=== PATIENT | male | born 1960 | race Caucasian/White ===

== ENCOUNTER 2019-05-05 08:27 | Emergency (ER) | payer BC ==
[2019-05-05 08:38] VITALS: BP 125/81
--- NOTE | 2019-05-05 10:08 | UC ---
Skin Complaint HPI - HPI Summary HPI Summary: 59-year-old male who was exposed to poison [place] and poison javier 10 days ago and developed a contact dermatitis which has not improved and is now spreading he has it on both arms and his left leg. - History of Current Complaint Chief Complaint: UCRash Time Seen by Provider: 05/05/19 10:05 Stated Complaint: POSION JAVIER/OAK Hx Obtained From: Patient Onset/Duration: Gradual Onset Skin Exposure Onset/Duration: Days Ago Timing: Constant Onset Severity: Mild Current Severity: Moderate Pain Intensity: 0 Location: Diffuse, Other - Left arm and left leg and no spreading to his right arm. Character: Pruritus, Redness Aggravating Factor(s): Touch Alleviating Factor(s): Nothing Associated Signs & Symptoms: Positive: Rash, Drainage - Clear drainage from some vesicles. Related History: Possible Reaction to: Environmental Exposure - Allergy/Home Medications Allergies/Adverse Reactions: Allergies Allergy/AdvReac Type Severity Reaction Status Date / Time allopurinol Allergy rash in Verified 05/05/19 08:39 mouth PMH/Surg Hx/FS Hx/Imm Hx Previously Healthy: Yes - Surgical History Surgical History: None Surgery Procedure, Year, and Place: DENIES - Family History Known Family History: Positive: Non-Contributory - Social History Alcohol Use: Daily Alcohol Amount: 5-6 beers/day Substance Use Type: Marijuana Substance Use Comment - Amount & Last Used: OCCASIONAL Smoking Status (MU): Never Smoked Tobacco Review of Systems All Other Systems Reviewed And Are Negative: Yes Skin: Positive: Rash - Rash started on his left arm and is now moving to his right arm and his left leg. Very itchy with some clear drainage. Is Patient Immunocompromised?: No Physical Exam Triage Information Reviewed: Yes Appearance: Well-Appearing, No Pain Distress, Well-Nourished Vital Signs: Initial Vital Signs Temp 98 F 05/05/19 08:37 Pulse 68 05/05/19 08:37 Resp 16 05/05/19 08:37 BP 125/81 05/05/19 08:37 Pulse Ox 100 05/05/19 08:37 Vital Signs Reviewed: Yes Respiratory: Positive: Lungs clear, Normal breath sounds, No respiratory distress, No accessory muscle use Cardiovascular: Positive: RRR, No Murmur, Pulses Normal, Brisk Capillary Refill Skin: Positive: Rashes - Typical contact dermatitis on left arm and starting on his right wrist as well as his left lower leg. No secondary skin infection. Course/Dx - Course Course Of Treatment: Patient is comfortable here I'm going to put him on a tapering dose of prednisone to follow-up with his primary care provider as needed. He was advised when he is finished work for the day to come and take a shower changes closed to avoid further contact dermatitis. - Diagnoses Provider Diagnosis: Contact dermatitis Discharge - Sign-Out/Discharge Documenting (check all that apply): Patient Departure All imaging exams completed and their final reports reviewed: No Studies - Discharge Plan Condition: Fair Disposition: HOME Prescriptions: predniSONE [Prednisone 20 MG TAB] 20 mg PO DAILY 9 Days #18 tablet Patient Education Materials: Poison [place] (ED) Referrals: Kehinde Chery MD [Primary Care Provider] - Additional Instructions: Take the prednisone with food. Follow-up with your primary care provider if no improvement in 3 or 4 days. - Billing Disposition and Condition Condition: FAIR Disposition: Home
== END 2019-05-05 10:10 | disposition home or self-care (01) ==
LOC: UCEAST 08:27
DX: L25.8 Unspecified contact dermatitis due to other agents (principal)
CPT/HCPCS: 99212; G0463

== ENCOUNTER 2019-11-15 20:33 | Observation (INO) | payer BC ==
--- OUTSIDE RECORDS SUMMARY | 2019-11-15 20:39 | XMS REPORT | Continuity of Care Document ---
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 Problems Active Problems Provider Date History of polyp of colon Lolita Schmitt PA-C Onset: 02/16/2019 Hemorrhage of rectum and anus Lolita Schmitt PA-C Onset: 02/16/2019 Social History Type Date Description Comments Sex Unknown ETOH Use Consumes 3 beers per day Tobacco Use Start: Unknown Patient has never smoked Smoking Status Reviewed: 08/22/19 Patient has never smoked Allergies, Adverse Reactions, Alerts Active Allergies Reaction Severity Comments Date Allopurinol Other, Rash Moderate 04/13/2017 Medications Active Medications SIG Qnty Indications Ordering Provider Date Uloric Take 1 tablet Unknown 80mg Tablets every day by oral route. Immunizations CPT Code Status Date Vaccine Lot # [id number] Given 04/05/2015 Td(Adult),Unspecified Vital Signs Date Vital Result Comment 08/22/2019 8:12am Height 69 inches 5'9" Weight 188.00 lb BP Systolic 129 mmHg BP Diastolic 74 mmHg Heart Rate 65 /min BMI (Body Mass Index) 27.8 kg/m2 02/16/2019 8:45am Height 70.5 inches 5'10.50" Weight 185.00 lb BP Systolic 120 mmHg BP Diastolic 69 mmHg Heart Rate 59 /min BMI (Body Mass Index) 26.2 kg/m2 Results Description No Information Available Procedures Description No Information Available Medical Devices Description No Information Available Encounters Description No Information Available Assessments Date Code Description Provider 08/22/2019 K57.30 Diverticulosis of large intestine without Kamila Sosa MD perforation or abscess without bleeding 08/22/2019 Z86.010 Personal history of colonic polyps Kamila Contreras MD 08/22/2019 Z80.0 Family history of malignant neoplasm of Kamila Contreras MD digestive organs 08/22/2019 K64.8 Other hemorrhoids Kamila Contreras MD Plan of Treatment No Information Available Functional Status Description No Information Available Mental Status Description No Information Available Referrals Description No Information Available
[2019-11-15] MEDS ORDERED: Nitroglycerin TAB 0.4 MG* 0.4 MG TAB ONE (20:46)
[2019-11-15] MEDS ORDERED: Nitroglycerin TAB 0.4 MG* 0.4 MG TAB SL ONE (20:46)
[2019-11-15 20:48] LABS: ABS Eosinophils 0.2 10^3/ul (0-0.6); ABS Lymphocytes 2.6 10^3/ul (1.0-4.8); ABS Monocytes 0.6 10^3/ul (0-0.8); ABS Neutrophils 6.8 10^3/ul (1.5-7.7); Eosinophil % 1.7 %; Hematocrit 42 % (42-52); Hemoglobin 14.3 g/dL (14.0-18.0); Lymphocyte % 25.4 %; Mean Corpuscular HGB Conc 34 g/dL (31-36); Mean Corpuscular Hemoglobin 32 pg (27-31); Mean Corpuscular Volume 92 fL (80-94); Mean Platelet Volume 7.6 fL (7.4-10.4); Nucleated Red Blood Cells % 0.1; Platelet Count 184 10^3/uL (150-450); Red Blood Count 4.51 10^6 /uL (4.18-5.48); Red Cell Distribution Width 14 % (10-15); White Blood Count 10.3 10^3/uL (3.5-10.8)
[2019-11-15] MEDS ORDERED: Aspirin EC TAB* 81 MG TAB.EC ONE (20:48)
--- NOTE | 2019-11-15 20:49 | ED ---
HPI Chest Pain - HPI Summary HPI Summary: This patient is a 59 year old male presenting to [facility] with a chief complaint of chest pain since 4 hours ago. He states it started as neck pain following [place] dinner and then progressed to chest pain radiating to his bilateral shoulders and neck. He denies fever, cough. He states moving and deep breathing makes the pain worse. He rates his pain 4/10 in severity, but was an 8/10 when he was walking from the house to the car. He reports SOB, denies nausea and skin diaphoresis. He reports a Hx of Gout. - History of Current Complaint Time Seen by Provider: 11/15/19 20:37 Hx Obtained From: Patient Onset/Duration: Started Hours Ago Timing: Constant Pain Intensity: 4 Pain Scale Used: 0-10 Numeric Chest Pain Location: Mid Sternal Chest Pain Radiates To:: Shoulder, Neck - Allergy/Home Medications Allergies/Adverse Reactions: Allergies Allergy/AdvReac Type Severity Reaction Status Date / Time allopurinol Allergy rash in Verified 05/05/19 08:39 mouth PMH/Surg Hx/FS Hx/Imm Hx Endocrine/Hematology History: Denies: Hx Diabetes Cardiovascular History: Denies: Hx Hypertension, Hx Pacemaker/ICD, Other Cardiovascular Problems/ Disorders Respiratory History: Denies: Hx Asthma GI History: Reports: Other GI Disorders - POLYPS History: Denies: Hx Renal Disease Musculoskeletal History: Denies: Hx Scoliosis Sensory History: Denies: Hx Hearing Aid Neurological History: Denies: Hx Headaches, Other Neuro Impairments/Disorders Psychiatric History: Denies: Hx Panic Disorder - Surgical History Surgery Procedure, Year, and Place: DENIES Infectious Disease History: Denies: History Other Infectious Disease, Traveled Outside the [place] in Last 30 Days - Family History Known Family History: Positive: Cardiac Disease Negative: Seizure Disorder - Social History Alcohol Use: Daily Alcohol Amount: 5-6 beers/day Substance Use Type: Reports: Marijuana Substance Use Comment - Amount & Last Used: OCCASIONAL Smoking Status (MU): Never Smoked Tobacco Review of Systems - ROS Summary Review of Systems Summary: Uloric(NF) 80 mg PO DAILY 04/02/15 [History Confirmed 05/05/19] predniSONE [Prednisone 20 MG TAB] 20 mg PO DAILY 9 Days #18 tablet 05/05/19 [Rx] Negative: Skin Diaphoresis Positive: Chest Pain Positive: Shortness Of Breath Negative: Nausea All Other Systems Reviewed And Are Negative: Yes Physical Exam - Summary Physical Exam Summary: General: Well-developed, Well-nourished male in mild discomfort. HEENT: Normocephalic, Atraumatic. Eyes: Conjuctiva normal, PERRL. Oropharynx: Clear, mucous membranes moist, (-) exudates. Neck: Soft, FROM, (-) lymphadenopathy, (-) thyromegaly, (-) JVD. Cardiovascular: Normal sinus rhythm, (-) murmur. Lungs: Clear to auscultation bilaterally (-) wheezes, (-) rales, (-) rhonchi. Abdomen: Soft, non-tender, non-distended, (-) organomegaly, normal bowel sounds. Back: (-) CVA tenderness Extremities: No edema. Skin: Warm, dry, (-) rash. Neuro: Alert and oriented x3, no focal deficits. Psychiatric: Anxious. Triage Information Reviewed: Yes Vital Signs On Initial Exam: Temp Pulse Resp BP Pulse Ox 99.0 F 101 12 143/84 96 11/15/19 20:44 11/15/19 20:44 11/15/19 20:44 11/15/19 20:44 11/15/19 20:44 Vital Signs Reviewed: Yes Procedures - Sedation Patient Received Moderate/Deep Sedation with Procedure: No Diagnostics - Laboratory Result Diagrams: 11/15/19 20:40 11/15/19 20:40 Lab Statement: Any lab studies that have been ordered have been reviewed, and results considered in the medical decision making process. - Radiology CXR Radiology Interpretation Completed By: ED Physician Summary of Radiographic Findings: No infiltrate visualized. No pleural effusion visualized. Pending official radiologist report. - EKG 2034 Cardiac Rate: NL - 92 BPM EKG Rhythm: Sinus Rhythm Summary of EKG Findings: ST Elevations in V2. No STEMI. ED Physician has reviewed and interpreted this EKG. Re-Evaluation - Re-Evaluation First Eval Re-Evaluation Time: 22:00 Change: Improved Comment: Chest pain has improved, still present. Will administer another round of nitro paste. Chest Pain Course/Dx - Course Course Of Treatment: 59-year-old male presents with chest pain started at 4 PM. It radiates to his neck and shoulders. Worse with exertion. Accompanied by shortness of breath. No cardiac history. Patient had no significant relief from nitroglycerin. Given aspirin. Workup demonstrates negative troponin. He does have ST elevations in V2 with no previous EKGs for comparison. Patient considered ACS. Treated with Lopressor, Nitropaste and aspirin. Referred to hospitalist for admission. - Diagnoses Provider Diagnoses: Chest pain, Acute coronary syndrome Discharge ED - Sign-Out/Discharge Documenting (check all that apply): Patient Departure - Admission, accepted by Dr. Young, Hospitalist. - Discharge Plan Condition: Stable Disposition: ADMITTED TO [facility] - Billing Disposition and Condition Condition: STABLE Disposition: Admitted to [facility] - Attestation Statements Document Initiated by John: Yes Documenting Scribe: Jason Ware Provider For Whom John is Documenting (Include Credential): Jane Aguero MD Scribe Attestation: Jason Blount, scribed for Jane Aguero MD on 11/16/19 at 0052. Scribe Documentation Reviewed: Yes Provider Attestation: The documentation as recorded by the Jason ennis accurately reflects the service I personally performed and the decisions made by Jane landers MD Status of Scribe Document: Viewed
[2019-11-15 20:52] LABS: INR 0.95 (0.82-1.09)
[2019-11-15] MEDS ORDERED: Aspirin 81 mg CHEW TAB* 81 MG TAB.CHEW PO ONE (20:53)
[2019-11-15] MEDS ORDERED: Heparin for STEMI(*) 5,000 UNITS/ML 1 ML VIAL IV ONE (20:54)
[2019-11-15 21:03] LABS: ALT 16 U/L (7-52); AST 15 U/L (13-39); Albumin 4.2 g/dL (3.2-5.2); Albumin/Globulin Ratio 1.5 (1-3); Alkaline Phosphatase 62 U/L (34-104); Anion Gap 5 mmol/L (2-11); BUN/Creatinine Ratio 21.4 (8-20); Blood Urea Nitrogen 22 mg/dL (6-24); CO2 Carbon Dioxide 28 mmol/L (22-32); Calcium 9.6 mg/dL (8.6-10.3); Chloride 103 mmol/L (101-111); EGFR African American 89.1 (>60); EGFR Non-African American 73.7 (>60); Globulin 2.8 g/dL (2-4); Glucose 115 mg/dL (70-100); Potassium 4.3 mmol/L (3.5-5.0); Sodium 136 mmol/L (135-145)
[2019-11-15 21:04] LABS: Troponin I 0.01 ng/mL (<0.03)
[2019-11-15] MEDS ORDERED: Metoprolol Tartrate IV* 1 MG/ML 5 ML VIAL IV ONE ×3 (21:04→21:05)
[2019-11-15 21:05] LABS: Alcohol < 10 mg/dL (<10)
[2019-11-15 21:15] LABS: Activated Partial Thrombo Time 32.2 seconds (26.0-38.0)
[2019-11-15] MEDS ORDERED: Nitro 2% OINT* (Nitroglycerin) 1 INCH/PAK PAK TOPICAL ONE (22:26)
[2019-11-15] MEDS ORDERED: Enoxaparin(*) 40 MG/0.4 ML SYR SUBCUT SCH (23:45)
[2019-11-15] MEDS ORDERED: Nitroglycerin TAB 0.4 MG* 0.4 MG TAB SL PRN (23:57)
--- NOTE | 2019-11-16 03:45 | HP ---
CC: Dr. Kehinde Chery* ADMISSION HISTORY AND PHYSICAL: DATE OF ADMISSION: 11/15/19 PRIMARY CARE PHYSICIAN: Dr. Kehinde Chery. CHIEF COMPLAINT: Chest pain. HISTORY OF PRESENT ILLNESS: This is a 59-year-old male, who came in with chest pain. The patient was in his usual state of health up until 4 p.m. on [place] when he was having dinner with his kids. Denies any stress throughout the day. No exercise or any stress, but around 4 p.m., while he was finishing his dinner, he started having substernal chest pain radiating to his neck and shoulders and has been worsening on and off since 4 p.m. especially worse with any activity and lying down flat on the bed would also worsen the pain. He was having some mild shortness of breath and some mild cough accompanying this pain and cough would cause severe chest pain as well. He stated that the nitro that he took in the ER did not help much and he has been having constant pain ever since it started; it would wax and wane but never completely go away. PAST MEDICAL HISTORY: The patient has no significant medical problems such as hypertension, diabetes, or dyslipidemia. He had a history of gout for which he takes Uloric and history of rectal bleeding secondary to colonic polyp and as well as diverticular bleed, last colonoscopy was in spring of this year. PAST SURGICAL HISTORY: He has had multiple colonoscopies in the past. HOME MEDICATIONS: The patient is only on Uloric. ALLERGIES: The patient is noted to have allergies to ALLOPURINOL, which causes rash in his mouth. FAMILY HISTORY: Mother at age 85, had history of heart pacemaker but no DC , also had history of colon cancer. Father at age 47, was heavy alcoholic , had liver cirrhosis and problem with stomach. Older brother at age 62 due to nonalcoholic liver cirrhosis, also had history of diabetes. Younger brother at age 59, was heavy smoker with lung cancer. Sister who was also a heavy smoker at age 55 with diabetes and lung cancer and older sister was diagnosed with breast cancer but improved with surgical resection and is otherwise alive and well. SOCIAL HISTORY: The patient denies ever having any smoking but does consume about 3 to 4 beers on a daily basis. Denies any drug abuse. 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 Lives with his . He is otherwise full code with his being the surrogate decision maker. REVIEW OF SYSTEMS: A 14-point review of systems did not reveal any new information other than what is mentioned in the HPI. PHYSICAL EXAMINATION GENERAL: The patient is awake, alert, and oriented to time, place, and person, did not appear to be in any acute respiratory distress. VITAL SIGNS: BP was noted to be 112/74, heart rate 86, respiration rate 15, saturating 94% on room air, temperature is recorded as 99 degrees Fahrenheit. HEAD AND NECK: Atraumatic, normocephalic. Bilateral pupils are reactive. Oral mucosa was moist. Neck: Supple. No jugular venous distention. LUNGS: Clear to auscultation bilaterally. No wheezing, rhonchi, or rales. Chest examination, the patient did not have any reproducible chest pain. HEART: S1, S2. Regular rate and rhythm. ABDOMEN: Soft, nontender, nondistended. EXTREMITIES: No cyanosis, clubbing, or edema. DIAGNOSTIC STUDIES/LAB DATA: CBC was unremarkable. Coagulation profile unremarkable. D-dimer was less than 200. Comprehensive metabolic panel was unremarkable except for elevated random glucose at 115. LFTs within normal limits. Troponin was noted to be 0.01. Serum alcohol was less than 10. Portable chest x-ray was unremarkable, official read by Radiology is still pending. EKG was showing sinus rhythm at 92 beats per minute with J-point elevation noted on the anterior lead, otherwise no significant elevation to call a STEMI. IMPRESSION: This is a 59-year-old gentleman here with chest pain with history of pacemaker in his mother, but no smoking, does have a history of alcohol abuse for ruling out any acute coronary syndrome. ASSESSMENT AND PLAN: 1. Chest pain. Rule out acute coronary syndrome. We will get stress test, echocardiogram. We will start the patient on a baby aspirin on a daily basis and sublingual nitro p.r.n. and risk stratification with A1c and lipid profile and follow up serial troponins to rule out any myocardial infarction. 2. History of gout. Restart his home medications. 3. DVT prophylaxis with subcu Lovenox. [id number]/[facility] #: [id number] [facility] CENTERBrennan
[2019-11-16 05:54] LABS: ABS Lymphocytes 1.6 10^3/ul (1.0-4.8); ABS Monocytes 0.6 10^3/ul (0-0.8); ABS Neutrophils 5.5 10^3/ul (1.5-7.7); Eosinophil % 0.6 %; Hematocrit 39 % (42-52); Hemoglobin 13.5 g/dL (14.0-18.0); Lymphocyte % 20.8 %; Mean Corpuscular HGB Conc 34 g/dL (31-36); Mean Corpuscular Hemoglobin 31 pg (27-31); Mean Corpuscular Volume 91 fL (80-94); Mean Platelet Volume 7.7 fL (7.4-10.4); Platelet Count 177 10^3/uL (150-450); Red Cell Distribution Width 14 % (10-15); White Blood Count 7.9 10^3/uL (3.5-10.8)
[2019-11-16 06:10] LABS: BUN/Creatinine Ratio 19.7 (8-20); EGFR African American 126.6 (>60); EGFR Non-African American 104.6 (>60); HDL Cholesterol 37.9 mg/dL
[2019-11-16] MEDS ORDERED: Aspirin 81 mg CHEW TAB* 81 MG TAB.CHEW PO SCH (09:00)
--- NOTE | 2019-11-16 11:19 | ECHO ---
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 History: Dyspnea. Risk factors: Family history is significant for coronary artery disease. Conclusions Summary: - Left ventricle: The cavity size is normal. Wall thickness is mildly increased. Systolic function is normal. The estimated ejection fraction is 55-60%. Wall motion is normal; there are no regional wall motion abnormalities. Doppler parameters are consistent with abnormal left ventricular relaxation (grade 1 diastolic dysfunction). - Aortic valve: There is mild to moderate regurgitation. probably mild by vena contracta and jet diameter at the origin. - Tricuspid valve: There is mild regurgitation. Study data: Transthoracic echocardiogram. Procedure: Transthoracic echocardiography was performed. Image quality was good. Complete 2D, spectral Doppler, and color flow Doppler. Location: Bedside. Patient status: Inpatient. Patient room number: 452. No prior study is available for comparison. Findings Left ventricle: The cavity size is normal. Wall thickness is mildly increased. Systolic function is normal. The estimated ejection fraction is 55-60%. Wall motion is normal; there are no regional wall motion abnormalities. Doppler parameters are consistent with abnormal left ventricular relaxation (grade 1 diastolic dysfunction). Right ventricle: The cavity size is at the upper limits of normal. Systolic function is normal. Left atrium: The atrium is normal in size. Right atrium: The atrium is normal in size. Atrial septum: No defect or patent foramen ovale is identified. Mitral valve: The leaflets are normal thickness. There is no evidence of stenosis. There is trace regurgitation. Aortic valve: The valve is probably trileaflet. The leaflets are normal thickness. There is no evidence of stenosis. There is mild to moderate regurgitation. probably mild by vena contracta and jet diameter at the origin. Tricuspid valve: The leaflets are normal thickness. There is no evidence of stenosis. There is mild regurgitation. Pulmonic valve: The leaflets are normal thickness. There is no evidence of stenosis. There is trace regurgitation. Aorta: The aortic root appears normal. The aortic arch appears normal. Pericardium: There is no significant pericardial effusion. Pulmonary arteries: Systolic pressure is within the normal range, estimated to be 25 mm Hg. Systemic veins: Inferior vena cava: The vessel is normal in size. Pulmonary veins: The Pulmonary veins appear normal. Measurements Left ventricle Value Ref Aortic valve Value Ref SHARAD, LAX (L) 4.1 cm 4.2 - Peak v, S 1.61 m/sec ----- 5.8 VTI, S 31.6 cm ----- ESD, LAX 3.4 cm 2.5 - Mean grad, S 6.0 mm Hg ----- 4.0 Peak grad, S 10.0 mm Hg ----- FS, LAX (L) 18 % 25 - 43 DILEEP, VTI 2.56 cm^2 ----- PW, ED, LAX (H) 1.2 cm 0.6 - DILEEP, Vmax 2.45 cm^2 ----- 1.0 AR peak v 3.99 m/sec ----- FS (L) 18 % 25 - 43 AR PHT 507 ms ----- Mid-wall FS 8 % -------- AR peak grad 64 mm Hg ----- PW, ED (H) 1.1 cm 0.6 - 1.0 Mitral valve Value Ref PW/ID, ED 0.27 -------- Peak E 0.57 m/sec ----- E', avg, TDI 9.8 cm/sec -------- Peak A 0.64 m/sec -- --- E/e', avg, TDI 6 <=14 Decel time 162 ms ----- Peak E/A ratio 0.9 ----- LVOT Value Ref Diam, S 2.10 cm -------- Pulmonic valve Value Ref Area 3.5 cm^2 -------- Peak v, S 0.6 m/sec ----- Peak en, S 1.14 m/sec -------- Peak grad, S 1.0 mm Hg ----- Peak grad, S 5 mm Hg -------- Mean grad, S 3 mm Hg -------- Tricuspid valve Value Ref SV 81 ml -------- TR peak v 2.19 m/sec <=2. 8 Peak RV-RA grad, S 19 mm Hg ----- Ventricular septum Value Ref Max TR en 2.25 m/sec ----- IVS, ED (H) 1.1 cm 0.6 - 1.0 Aortic root Value Ref Root diam 3.8 cm <4.1 Right ventricle Value Ref SHARAD, LAX 3.5 cm -------- Ascending aorta Value Ref SHARAD minor ax, A4C (H) 4.3 cm 1.9 - AAo AP diam, S 3.7 cm ----- mid 3.5 AAo AP diam/bsa, S 1.9 cm/m^2 ----- Left atrium Value Ref Aortic arch Value Ref ML dim, A4C 3.9 cm -------- Arch diam 2.4 cm ----- SI dim, A4C 5.4 cm -------- Vol/bsa, ES, 1-p 28 ml/m^2 12 - 37 Inferior vena cava Value Ref A4C Diam 2.3 cm ----- Vol/bsa, ES, A/L 28 ml/m^2 16 - 34 Right atrium Value Ref SI dim, ES 5.3 cm 3.4 - 5.3 ML dim, ES, A4C 3.3 cm 2.6 - 4.4 SI dim, ES, A4C 5.3 cm 3.4 - 5.3 Legend: (L) and (H) skip values outside specified reference range. Prepared and electronically signed by Keyon Amanda MD 11/16/2019 11:18
[2019-11-16] MEDS ORDERED: Regadenoson* 0.4 MG/5 ML SYRINGE ONE (12:32)
[2019-11-16 15:39] VITALS: BP 119/71
--- NOTE | 2019-11-16 22:01 | DS ---
CC: Dr. Kehinde Chery* DISCHARGE SUMMARY: DATE OF ADMISSION: 11/15/19 DATE OF DISCHARGE: 11/16/19 PRIMARY CARE PROVIDER: Dr. Kehinde Chery. ATTENDING PHYSICIAN: Dr. Patricia Young* (dictated by Vy Arndt NP). PRIMARY DIAGNOSIS: Chest pain, suspected gastrointestinal. STUDIES WHILE IN THE HOSPITAL: 1. EKG on 11/15/19 shows normal sinus rhythm with a rate of 92, minimal ST elevation in anterior leads, though no other ST changes. QTc 426. 2. Chest x-ray on 11/15/19 reads as no evidence for active cardiopulmonary disease. 3. Transthoracic echocardiogram on 11/16/19 reads as the left ventricular cavity size is normal. Wall thickness is mildly increased. Systolic pressure is normal. The estimated ejection fraction is 55% to 60%. Wall motion is normal and there are no regional wall motion abnormalities. Doppler parameters are consistent with abnormal left ventricular relaxation (grade 1 diastolic dysfunction). There is mild to moderate AR. Probably mild by vena cava contracta and jet diameter at the origin. There is mild TR. 4. Nuclear cardiac stress test on 11/16/19 reads as no sonographic evidence of ischemia or infarction. Attenuation correction was not performed due to the patient's inability to fit in the CT scanner with arm abducted. Assessment is low risk. HISTORY OF PRESENT ILLNESS AND HOSPITAL COURSE: Mr. Krause is a 59-year-old male with past medical history only of gout, who presented to the emergency room on 11/15/19 with complaints of chest pain. Please see the history and physical by Dr. Young for complete summary of the events leading up to this hospitalization. In short, the patient was in his usual state of health. He had been playing to some extent with his grandchildren, and around 4 p.m., noted substernal chest pain radiating into his neck and shoulders. This was worse when laying flat. This was accompanied by mild cough and shortness of breath. In the emergency room, the patient was noted to be very minimally tachycardic. Labs were unremarkable and troponin was noted to be 0.01. There was some minimal ST elevation on EKG and so the patient was admitted for observation. The patient had an uneventful night. He was monitored on telemetry with no significant arrhythmias noted. He has not had any recurrent pain and the pain has been resolved since being in the emergency room. He had an echocardiogram and a cardiac stress test today with results noted above. Stress test was noted to be low risk. Two additional troponins were 0.01 and 0.00. Lipid panel showed triglycerides of 220, total cholesterol of 122, LDL of 40, and HDL of 37. Hemoglobin A1c was noted to be 5.9 in the prediabetic range and this was consistent with results of 5.8 from April 2018, though the patient was not aware of the diagnosis of prediabetes. Tachycardia has normalized, the patient is feeling well and he is anxious to return home. Based on his description of the events, it sounds as though the pain he experienced yesterday may have been gastrointestinal in nature. The pain did begin after a large meal and was worse with laying down, there was some associated cough, all of which are suspicious for reflux. At this point, ACS has been ruled out. He is alert and oriented x4 with no focal neurological deficits. Heart has a regular rate and rhythm. There is no edema. Physical exam is otherwise benign. Mr. Krause is stable for discharge. Most recent vitals are as follows: Temp 98.2, heart rate 84, respiratory rate 20, oxygen saturation 99% on room air, blood pressure 119/71. DISCHARGE MEDICATIONS: Continued medications: Uloric 80 mg p.o. daily. DISCHARGE PLAN: Mr. Krause will be discharged home. ACTIVITY: Will be as tolerated. DIET: Will be regular as tolerated. I did discuss with the patient the diagnosis of prediabetes and encouraged him to make some dietary changes as well as to lose 5 to 10 pounds and this would likely result in improvement in A1c. All other results have been reviewed with him and his family. He can continue taking his Uloric as he was previously. I have advised him that if he has any recurrent symptoms he could try some Tums or Maalox in the future. He will need to follow up with his primary care provider in the next 4 to 7 days. He should return to the emergency room or nearest hospital for any worsening of symptoms, shortness of breath, lightheadedness, dizziness, chest discomfort, high fevers, chills, night sweats , loss of consciousness, or any other worrisome signs or symptoms. DISCHARGE CONDITION: Stable. DISCHARGE DISPOSITION: Home. This is a summarized report of a complex medical history and hospital stay. For further details, please see the entire medial record. TIME SPENT: Approximately 40 minutes were spent on this discharge. VY ARNDT, VOLTMETER OPERATOR [id number]/CPS #: [id number]
== END 2019-11-16 15:39 | disposition home or self-care (01) ==
LOC: ED 20:33 → MEDTELE 23:48
PROVIDERS: ADMIT Internal Medicine; ATTEND Internal Medicine
DX: R07.9 Chest pain, unspecified (principal); R06.02 Shortness of breath; M10.9 Gout, unspecified; Z79.899 Other long term (current) drug therapy
CPT/HCPCS: 36415; 71045; 78452; 80048; 80053; 80061; 80320; 83036; 84484; 85025; 85379; 85610; 85730; 93005; 93017; 93306; 96372; 96374; 96376; 99284; A9270-GY; A9502; G0378; G0480; J1644; J1650; J2785; J3490